=== PATIENT | male | born 1985 | race Caucasian/White ===

== ENCOUNTER 2019-09-16 22:06 | Day surgery (SDC) | payer OTHER ==
--- NOTE | 2019-09-16 22:57 | PDOC ---
Documentation entered by Henry Louis SCRIBE, acting as scribe for Thompson Meraz MD. Thompson Meraz MD: This documentation has been prepared by the Missy jackson Nirvannie, SCRIBE, under my direction and personally reviewed by me in its entirety. I confirm that the documentation accurately reflects all work, treatment, procedures, and medical decision making performed by me. History of Present Illness - General Chief Complaint: Pain, Acute Stated Complaint: EPIGASTRIC PAIN Time Seen by Provider: 09/16/19 22:11 History Source: Patient Exam Limitations: No Limitations - History of Present Illness Initial Comments: 09/16/19 22:55 HPI: The patient is a 33 year old male, with no significant past medical history, who presents to the emergency department with 1.5 days of diffuse lower abdominal pain with associated new onset one day of nausea with emesis. Patient describes his abdominal pain as a 7-8/10 and notes his emesis to occur secondary to pain. He denies any previous abdominal surgeries. He denies any recent fevers, chills , headache or dizziness. He denies any recent diarrhea or constipation. He denies any recent chest pain or shortness of breath. He denies any recent dysuria, frequency, urgency or hematuria. PAST MEDICAL HISTORY: no significant history PAST SURGICAL HISTORY: no significant history FAMILY HISTORY: no pertinent history SOCIAL HISTORY: Pt lives with family and is employed. MEDICATIONS: reviewed ALLERGIES: As per nursing notes ROS: General: No fevers or chills, no weakness, no weight loss HEENT: No change in vision. No sore throat,. No ear pain CardioVascular: No chest pain or shortness of breath Respiratory:No cough, or wheezing. Gastrointestinal: +Lower abdominal pain. +Nausea. +Vomiting. no diarrhea or constipation, No rectal bleeding Genitourinary: No dysuria, hematuria, or frequency Musculoskeletal: No joint or muscle pain or swelling Neurologic: No headache, vertigo, dizziness or loss of consciousness Psychiatric: nor depression Skin: No rashes or easy bruising Endocrine: no increased thirst or abnormal weight change Allergic: no skin or latex allergy All other systems reviewed and normal Physical Exam: General: Well-nourished well-developed individual, no acute distress HEENT: Throat: Normal, tonsils normal, no erythema or exudate Neck: Supple, no meningeal signs, no lymphadenopathy Eyes::Pupils equal reactive and round, extraocular motion intact Chest: Nontender to palpation Cardiac: S1-S2 normal, regular rate and rhythm, no murmurs rubs or gallops Respiratory: Lungs clear to auscultation bilateral Abdomen: +RLQ tenderness with mild guarding. Slightly decreased bowel sounds. Soft, nondistended. Extremities: Warm, dry, no cyanosis, clubbing, or edema Skin: No rashes Neuro: Alert and oriented x3, nonfocal exam, grossly intact, normal gait Psych: Normal mood and affect 09/17/19 00:37 Assessment and plan: This is a 33-year-old male who comes in complaining of 1-1/ 2 days of progressive right lower quadrant abdominal pain. Patient on exam had an exam suspicious for appendicitis. Work-up was initiated including CBC, comp , CAT scan abdomen and pelvis. CAT scan of abdomen and pelvis did show acute appendicitis. Dr. Simon was called and case discussed with Dr. Simon. There are no beds at [facility] as per Dr. Simon's request that patient be transferred to [facility]. So discussed with Dr. Simon and patient will be kept here at [facility]. Hospitalist service was also notified of the admission. Past History - Past Medical History Allergies/Adverse Reactions: Allergies Allergy/AdvReac Type Severity Reaction Status Date / Time No Known Allergies Allergy Unverified 09/16/19 22:07 Home Medications: Ambulatory Orders NK [No Known Home Medication] 09/16/19 COPD: No - Psycho Social/Smoking Cessation Hx Smoking History: Never smoked *Physical Exam - Vital Signs Last Vital Signs Temp Pulse Resp BP Pulse Ox 98 F 55 L 16 113/75 100 09/16/19 22:08 09/16/19 22:08 09/16/19 22:08 09/16/19 22:08 09/16/19 22:08 ED Treatment Course - LABORATORY CBC & Chemistry Diagram: 09/16/19 22:50 09/16/19 22:50 Discharge - Discharge Information Problems reviewed: Yes Clinical Impression/Diagnosis: Acute appendicitis Qualifiers: Acute appendicitis type: unspecified acute appendicitis type Qualified Code(s) : K35.80 - Unspecified acute appendicitis Condition: Stable - Admission Yes - Follow up/Referral - Patient Discharge Instructions - Post Discharge Activity
[2019-09-16] MEDS ORDERED: ONDANSETRON 4 MG/2 ML VIAL IVPB ONE (23:00)
[2019-09-16] MEDS ORDERED: morphine CARPU-JECT 4 MG/1 ML DISP.SYRIN IVPUSH ONE (23:00)
[2019-09-16] MEDS ORDERED: SODIUM CHLORIDE 1,000 ML IV ONE (23:00)
[2019-09-16] MEDS ORDERED: morphine SULFATE 4 MG/ML VIAL ONE (23:07)
[2019-09-16] MEDS ORDERED: ONDANSETRON 4 MG/2 ML VIAL ONE (23:08)
[2019-09-16 23:10] LABS: BASO % 0.4 % (0-2.0); EOS % 0.4 % (0-4.5); HEMATOCRIT 41.8 % (35.4-49); HEMOGLOBIN 14.3 GM/dl (11.7-16.9); LYMPH % 8.9 % (8-40); MCH 32.1 pg (25.7-33.7); MCHC 34.1 g/dl (32.0-35.9); MEAN PLT VOLUME 7.8 fl (7.5-11.1); MONO % 4.7 % (3.8-10.2); NEUT % 85.6 % (42.8-82.8); PLATELET COUNT 260 K/MM3 (134-434); RBC 4.45 M/mm3 (4.00-5.60); WHITE BLOOD COUNT 9.7 K/mm3 (4.0-10.8)
[2019-09-16 23:19] LABS: ALBUMIN 4.5 g/dl (3.4-5.0); BILIRUBIN,TOTAL 0.7 mg/dl (0.2-1); CALCIUM 9.8 mg/dl (8.5-10); CREATININE 0.8 mg/dl (0.55-1.3); POTASSIUM 3.9 mmol/L (3.5-5.1); TOT PROT 7.4 g/dl (6.4-8.2)
[2019-09-17] MEDS ORDERED: PIPERACILLIN/TAZOBACTAM 4.5 GM VIAL IVPB ONE (00:09)
[2019-09-17] MEDS ORDERED: PIPERACILLIN/TAZOB 4.5 GM 4.5 GM in DEXTROSE 5%-WATER 100 ML IVPB ONE (00:13)
[2019-09-17] MEDS ORDERED: morphine CARPU-JECT 4 MG/1 ML DISP.SYRIN IVPUSH ONE (00:39)
[2019-09-17] MEDS ORDERED: morphine SULFATE 4 MG/ML VIAL ONE (00:40)
[2019-09-17] MEDS ORDERED: LACTATED RINGERS SOLUTION 1,000 ML IV SCH ×2 (00:45→13:00)
[2019-09-17 01:29] VITALS: BMI 21.7
[2019-09-17 02:02] LABS: INR 1.02 (0.83-1.09)
[2019-09-17] MEDS ORDERED: morphine SULFATE 4 MG/ML VIAL IVPUSH PRN ×2 (04:00→19:29)
[2019-09-17] MEDS ORDERED: ONDANSETRON 4 MG/2 ML VIAL IVPUSH PRN ×2 (04:00→12:50)
[2019-09-17 07:30] LABS: BASO % 0.1 % (0-2.0); HEMATOCRIT 37.9 % (35.4-49); HEMOGLOBIN 12.6 GM/dl (11.7-16.9); LYMPH % 6.6 % (8-40); MCH 31.9 pg (25.7-33.7); MCHC 33.3 g/dl (32.0-35.9); MEAN CELL VOLUME 95.8 fl (80-96); MEAN PLT VOLUME 7.9 fl (7.5-11.1); MONO % 8.8 % (3.8-10.2); NEUT % 84.5 % (42.8-82.8); PLATELET COUNT 208 K/MM3 (134-434); RBC 3.95 M/mm3 (4.00-5.60); RDW 12.3 % (11.9-15.9); WHITE BLOOD COUNT 8.7 K/mm3 (4.0-10.8)
[2019-09-17 07:38] LABS: CALCIUM 8.5 mg/dl (8.5-10); CREATININE 0.8 mg/dl (0.55-1.3); POTASSIUM 4.2 mmol/L (3.5-5.1)
[2019-09-17] MEDS ORDERED: PIPERACILLIN/TAZOB 3.375 GM 3.375 GM in DEXTROSE 5%-WATER - 50 ML IVPB SCH ×3 (08:00→18:00)
--- NOTE | 2019-09-17 08:15 | CONSULT ---
- Consultation REQUESTING PROVIDER: General Surgery - Reji Aurora CONSULT REQUEST: We have been asked to surgically evaluate this patient for abd pain / acute appy Hospitalist: Francesca Neff NP HPI: Called to [place] 33 yo male without any PMHx os PSHx. Presents to [facility] ED w/ c/ o abd pain (specifically RLQ) that started 2 days ago. States he felt like he had a fever (never actually took temp at home), +n/v (nbnb). Admits to loss of appetite. Over the last few hours pain has migrated towards his RLQ. Denies diarrhea or constipation. Denies CP, palpitations, SOB or ALVAREZ. Denies melena, hematochazia. Denies dysuria, hematuria, flank pain, genital pain. Denies trauma. Patient had CT scan of abd/pelvis while in ED which identified acute appendicitis. PMHx: Denies. PSHx: Denies. Home Medications: None. Allergies: NKDA ROS: CONSTITUTIONAL: Absent: diaphoresis, generalized weakness, malaise, loss of appetite, weight change CARDIOVASCULAR: Absent: syncope, irregular heart rate, lightheadedness, peripheral edema RESPIRATORY: Absent: cough, wheezing, stridor, hemoptysis GASTROINTESTINAL:SEE HPI GENITOURINARY: Absent: SEE HPI MUSCULOSKELETAL: Absent: myalgia, arthralgia, joint swelling, back pain, neck pain SKIN: Absent: rash, itching, pallor HEMATOLOGIC/IMMUNOLOGIC: Absent: easy bleeding, easy bruising, lymphadenopathy NEUROLOGIC: Absent: headache, focal weakness, paresthesias, dizziness, unsteady gait, seizure, mental status changes, PSYCHIATRIC: Absent: anxiety, depression, suicidal or homicidal ideation, hallucinations. PE: GENERAL: Awake, alert, and fully oriented, in no acute distress. HEAD: NC. AT. EYES: PERRL, sclera anicteric, conjunctiva clear. NECK: Normal ROM, supple without lymphadenopathy, JVD, or masses. LUNGS: CTA bilat HEART: RRR ABDOMEN: + McBurney's, voluntary guarding. No rigidity. No organomegaly appreciated MUSCULOSKELETAL: No CVAT bilat UE: 2+ pulses, warm, well-perfused. No cyanosis. Cap refill <2 seconds. No peripheral edema. LE: 2+ pulses, warm, well-perfused. No calf tenderness. No peripheral edema. PSYCH: Cooperative. Good eye contact. Appropriate mood and affect. SKIN: Warm, dry, normal turgor, no rashes or lesions noted. Last Vital Signs Temp Pulse Resp BP Pulse Ox 99.1 F 52 L 17 103/57 L 96 09/17/19 06:00 09/17/19 06:00 09/17/19 07:47 09/17/19 06:00 09/17/19 07:47 CBC, BMP 09/17/19 07:00 09/17/19 07:00 INR, PTT INR 1.02 (0.83-1.09) 09/17/19 00:55 Blood Type Blood Type AB POSITIVE 09/17/19 00:27 Problem List - Problems (1) Acute appendicitis Assessment/Plan: 33 yo male admitted with acute uncomplicated appendicitis on CT scan. - Keep NPO - IVF hydration - Pain mangement - IV ABX - Tylenol for fever > 100.4F - OR for lap appy today Above plan discussed with Dr. Simon and agrees. Code(s): K35.80 - UNSPECIFIED ACUTE APPENDICITIS Qualifiers: Acute appendicitis type: unspecified acute appendicitis type Qualified Code (s): K35.80 - Unspecified acute appendicitis Visit type - Case Type Case Type: ED Admission - Emergency Emergency Visit: Yes ED Registration Date: 09/17/19 Care time: The patient presented to the Emergency Department on the above date and was hospitalized for further evaluation of their emergent condition. - New patient This patient is new to me today: Yes Date on this admission: 09/17/19
[2019-09-17] MEDS ORDERED: DEXTROSE 5%-WATER - 50 ML IVPB ONE ×3 (09:20→23:39)
[2019-09-17] MEDS ORDERED: PIPERACILLIN/TAZOBACTAM 3.375 GM VIAL IVPB ONE ×3 (09:20→23:39)
--- NOTE | 2019-09-17 09:57 | PN ---
Progress Note (short form) - Note Progress Note: ID CONSULT DICTATED
[2019-09-17] MEDS ORDERED: SUCCINYLCHOLINE CHLORIDE 200 MG/10 ML SYRINGE ONE (10:16)
[2019-09-17] MEDS ORDERED: PROPOFOL 20 ML ONE (10:16)
[2019-09-17] MEDS ORDERED: MIDAZOLAM HCL 2 MG/2 ML SINGLE DOSE VIAL ONE (10:17)
[2019-09-17] MEDS ORDERED: ROCURONIUM BROMIDE 50 MG/5 ML VIAL ONE (10:17)
[2019-09-17] MEDS ORDERED: ceFAZolin SODIUM 1 GM VIAL ONE (11:00)
[2019-09-17] MEDS ORDERED: LIDOCAINE HCL/PF 2% SDV 5ML VIAL ONE (11:00)
[2019-09-17] MEDS ORDERED: SODIUM CHLORIDE 0.9% P/F 10 ML VIAL IJ ONE (11:00)
[2019-09-17] MEDS ORDERED: ONDANSETRON 4 MG/2 ML VIAL ONE (11:00)
[2019-09-17] MEDS ORDERED: KETOROLAC TROMETHAMINE 30 MG/1 ML VIAL ONE (11:00)
[2019-09-17] MEDS ORDERED: DEXAMETHASONE SOD PHOSPHATE 4 MG/1 ML VIAL ONE (11:00)
[2019-09-17] MEDS ORDERED: ceFAZolin SODIUM 1 GM VIAL IVPB ONE (11:15)
--- NOTE | 2019-09-17 11:20 | HP ---
CHIEF COMPLAINT: Abdominal pain HISTORY OF PRESENT ILLNESS: The patient is a 33 year-old male with no significant past medical history, who presents to the emergency department with 1.5 days of diffuse lower abdominal pain with associated new onset one day of nausea with emesis. Patient describes his abdominal pain as a 7-8/10 and notes his emesis to occur secondary to pain. He denies any previous abdominal surgeries. He denies any recent fevers, chills , headache or dizziness. He denies any recent diarrhea or constipation. He denies any recent chest pain or shortness of breath. He denies any recent dysuria, frequency, urgency or hematuria. ER course was notable for: (1) CTAP: acute appendicitis (2) (3) Recent Travel: No PAST MEDICAL HISTORY: None reported PAST SURGICAL HISTORY: None reported Social History: Smoking: no Alcohol:no Drugs: no Family history: non-contributory Allergies No Known Allergies Allergy (Unverified 09/16/19 22:07) HOME MEDICATIONS: Home Medications Medication Instructions Recorded NK [No Known Home Medication] 09/16/19 REVIEW OF SYSTEMS: performed post-operatively CONSTITUTIONAL: Absent: fever, chills, diaphoresis, generalized weakness, malaise, loss of appetite, weight change HEENT: Absent: rhinorrhea, nasal congestion, throat pain, throat swelling, difficulty swallowing, mouth swelling, ear pain, eye pain, visual changes CARDIOVASCULAR: Absent: chest pain, syncope, palpitations, irregular heart rate, lightheadedness , peripheral edema RESPIRATORY: Absent: cough, shortness of breath, dyspnea with exertion, orthopnea, wheezing, stridor, hemoptysis GASTROINTESTINAL: +mild surgical abdominal pain Absent: abdominal distension, nausea, vomiting, diarrhea, constipation, melena, hematochezia GENITOURINARY: Absent: dysuria, frequency, urgency, hesitancy, hematuria, flank pain, genital pain MUSCULOSKELETAL: Absent: myalgia, arthralgia, joint swelling, back pain, neck pain SKIN: Absent: rash, itching, pallor HEMATOLOGIC/IMMUNOLOGIC: Absent: easy bleeding, easy bruising, lymphadenopathy, frequent infections ENDOCRINE: Absent: unexplained weight gain, unexplained weight loss, heat intolerance, cold intolerance NEUROLOGIC: Absent: headache, focal weakness or paresthesias, dizziness, unsteady gait, seizure, mental status changes, bladder or bowel incontinence PSYCHIATRIC: Absent: anxiety, depression, suicidal or homicidal ideation, hallucinations. PHYSICAL EXAMINATION Vital Signs - 24 hr 09/16/19 09/17/19 09/17/19 22:08 00:40 00:51 Temperature 98 F 99.4 F Pulse Rate 55 L Pulse Rate [ 50 L 57 L Radial] Respiratory 16 16 Rate Blood Pressure 113/75 Blood Pressure 105/66 [Arm] O2 Sat by Pulse 100 98 Oximetry (%) 09/17/19 09/17/19 09/17/19 01:22 06:00 07:47 Temperature 98.1 F 99.1 F Pulse Rate 48 L 52 L Pulse Rate [ Radial] Respiratory 17 17 17 Rate Blood Pressure 105/57 L 103/57 L Blood Pressure [Arm] O2 Sat by Pulse 98 96 96 Oximetry (%) 09/17/19 09/17/19 08:00 08:45 Temperature 99.9 F H 98.4 F Pulse Rate 56 L 104 H Pulse Rate [ Radial] Respiratory 20 20 Rate Blood Pressure 101/56 L 144/83 Blood Pressure [Arm] O2 Sat by Pulse Oximetry (%) GENERAL: Awake, alert, and fully oriented, in no acute distress. Pale. HEAD: Normal with no signs of trauma. EYES: Pupils equal, round and reactive to light, extraocular movements intact, sclera anicteric, conjunctiva clear. . EARS, NOSE, THROAT: Ears normal, nares patent, oropharynx clear without exudates. Dry mucous membranes. LUNGS: Breath sounds equal, clear to auscultation bilaterally. No wheezes, and no crackles. No accessory muscle use. HEART: Regular rate and rhythm, normal S1 and S2 ABDOMEN: Soft, tender, surgical incision sites dry, edges well-approximated, no erythema MUSCULOSKELETAL: Normal range of motion at all joints. No bony deformities or tenderness. No CVA tenderness. UPPER EXTREMITIES: 2+ pulses, warm, well-perfused. No cyanosis. No clubbing. No peripheral edema. LOWER EXTREMITIES: 2+ pulses, warm, well-perfused. No calf tenderness. No peripheral edema. NEUROLOGICAL: Cranial nerves II-XII intact. Normal speech. Laboratory Results - last 24 hr 09/16/19 09/16/19 09/16/19 22:50 22:50 22:50 WBC 9.7 RBC 4.45 Hgb 14.3 Hct 41.8 MCV 94.0 MCH 32.1 MCHC 34.1 RDW 12.0 Plt Count 260 MPV 7.8 Absolute Neuts (auto) 8.3 Neutrophils % 85.6 H Lymphocytes % 8.9 Monocytes % 4.7 Eosinophils % 0.4 Basophils % 0.4 PT with INR INR Sodium 134 L Potassium 3.9 Chloride 97 L Carbon Dioxide 24 Anion Gap 13 BUN 17.0 Creatinine 0.8 Est GFR (CKD-EPI)AfAm 136.03 Est GFR (CKD-EPI)NonAf 117.37 Random Glucose 113 H Calcium 9.8 Total Bilirubin 0.7 AST 25 ALT 22 Alkaline Phosphatase 60 Total Protein 7.4 Albumin 4.5 Lipase 98 Urine Color Urine Appearance Urine pH Urine Protein Urine Glucose (UA) Urine Ketones Urine Blood Urine Nitrite Urine Bilirubin Urine Urobilinogen Ur Leukocyte Esterase Blood Type Antibody Screen 09/16/19 09/17/19 09/17/19 23:00 00:27 00:55 WBC RBC Hgb Hct MCV MCH MCHC RDW Plt Count MPV Absolute Neuts (auto) Neutrophils % Lymphocytes % Monocytes % Eosinophils % Basophils % PT with INR 12.00 INR 1.02 Sodium Potassium Chloride Carbon Dioxide Anion Gap BUN Creatinine Est GFR (CKD-EPI)AfAm Est GFR (CKD-EPI)NonAf Random Glucose Calcium Total Bilirubin AST ALT Alkaline Phosphatase Total Protein Albumin Lipase Urine Color Yellow Urine Appearance Clear Urine pH 7.0 Urine Protein Negative Urine Glucose (UA) Negative Urine Ketones 4+ H Urine Blood Negative Urine Nitrite Negative Urine Bilirubin Negative Urine Urobilinogen 0.2 Ur Leukocyte Esterase Negative Blood Type AB POSITIVE Antibody Screen Negative 09/17/19 09/17/19 07:00 07:00 WBC 8.7 RBC 3.95 L Hgb 12.6 Hct 37.9 MCV 95.8 MCH 31.9 MCHC 33.3 RDW 12.3 Plt Count 208 MPV 7.9 Absolute Neuts (auto) 7.3 Neutrophils % 84.5 H Lymphocytes % 6.6 L D Monocytes % 8.8 D Eosinophils % 0.0 D Basophils % 0.1 PT with INR INR Sodium 133 L Potassium 4.2 Chloride 101 Carbon Dioxide 26 Anion Gap 6 L BUN 12.0 Creatinine 0.8 Est GFR (CKD-EPI)AfAm 136.03 Est GFR (CKD-EPI)NonAf 117.37 Random Glucose 113 H Calcium 8.5 Total Bilirubin AST ALT Alkaline Phosphatase Total Protein Albumin Lipase Urine Color Urine Appearance Urine pH Urine Protein Urine Glucose (UA) Urine Ketones Urine Blood Urine Nitrite Urine Bilirubin Urine Urobilinogen Ur Leukocyte Esterase Blood Type Antibody Screen ASSESSMENT/PLAN: The patient is a 33 year-old male with no significant past medical history, admitted for acute appendicitis. Acute appendicitis s/p laprascopic appendectomy 09/17/19 --POD #0 --started on Zosyn per ID --pain management per surgery --labs in am FEN Fluids: LR@125mL/hr Electrolytes: replete as indicated Nutrition: regular diet DVT prophylaxis: OOB, ambulation, 24 hour stay Dispo: continues to require inpatient care. Full code. Visit type - Emergency Visit Emergency Visit: Yes Care time: The patient presented to the Emergency Department on the above date and was hospitalized for further evaluation of their emergent condition. - New Patient This patient is new to me today: Yes Date on this admission: 09/17/19 - Critical Care Critical Care patient: No
--- NOTE | 2019-09-17 11:30 | CONS ---
DATE OF CONSULTATION: DATE OF DICTATION: 09/17/2019 INFECTIOUS DISEASE CONSULTATION HISTORY OF PRESENT ILLNESS: The patient is a 33-year-old previously healthy male evaluated for low-grade fever in the setting of acute appendicitis. He presented to the hospital with a 1-1/2-day history of worsening lower abdominal pain associated with nausea and vomiting. He was found to have acute right lower quadrant abdominal pain consistent with acute appendicitis. A CAT scan of the abdomen and pelvis was performed and showed an inflamed retrocecal appendix consistent with acute appendicitis. His course was complicated by low-grade fever. His cultures were obtained. He was empirically treated with Zosyn. He is scheduled for an appendectomy this morning. At the present time he complains of right lower quadrant abdominal pain. Denies any recurrent nausea or vomiting. PAST MEDICAL HISTORY: Negative. ALLERGIES: No known allergies. LABORATORY DATA: White count 8.7, hematocrit 37.9, platelet count 208. Creatinine 0.8. Blood cultures are pending. PHYSICAL EXAMINATION:General: He is in no acute distress. He is lying still in bed. Vital Signs: Temperature 98.4, T-Max 99.9, blood pressure 144/83, pulse 104, regular, respirations 20 per minute. HEENT: Sclerae anicteric. Cardiac: Heart sounds S1, S2. Lungs: Clear. Abdomen: Positive bowel sounds. There is right lower quadrant tenderness to deep palpation with rebound tenderness. Extremities: Negative for edema. Negative Sharon sign. IMPRESSION: 1. Acute appendicitis. 2. Low-grade fever. PLAN: The patient is for appendectomy this morning. Await cultures. Continue empiric Zosyn perioperatively for coverage of intraabdominal pathogens. Thank you for the kind referral. AJITH CACERES M.D. [id number]
[2019-09-17] MEDS ORDERED: NEOSTIGMINE METHYLSULFATE 0.5 MG/ML - 10 ML MDV ONE (11:50)
[2019-09-17] MEDS ORDERED: GLYCOPYRROLATE 0.2 MG/1 ML VIAL ONE (11:51)
[2019-09-17] MEDS ORDERED: BUPIVACAINE HCL/PF 0.5% (5MG/ML) 10 ML VIAL NR ONE (12:00)
[2019-09-17] MEDS ORDERED: BENZOIN/ALOE VERA/STORAX/TOLU 58 ML BOTTLE ONE (12:01)
--- NOTE | 2019-09-17 12:07 | OP ---
Operative Note - Note: Operative Date: 09/17/19 Pre-Operative Diagnosis: Acute appendicitis (uncomplicated) Operation: Laprascopic appendectomy Post-Operative Diagnosis: Same as Pre-op Surgeon: Reji Simon Systems Integration Advisor: Marty Glynn Anesthesiologist/DIRECTOR PROSPECT: Ravindra Leblanc Anesthesia: General Specimens Removed: appendix Estimated Blood Loss (mls): 5 Fluid Volume Replaced (mls): 800 Operative Report Dictated: Yes
--- NOTE | 2019-09-17 12:08 | SURG ---
Surgery Vocational Director Note Vocational Director: Marty Glynn PA-C Date of Service: 09/17/19 Diagnosis: Acute appendicitis (uncomplicated) Procedure: Laprascopic appendectomy I was present for the entirety of the operative procedure. For further detail, please refer to operative report. Visit type - Case Type Case Type: ED Admission - Emergency Emergency Visit: Yes ED Registration Date: 09/17/19 Care time: The patient presented to the Emergency Department on the above date and was hospitalized for further evaluation of their emergent condition.
--- NOTE | 2019-09-17 12:14 | EKG ---
Test Reason : Blood Pressure : / mmHG Vent. Rate : 057 BPM Atrial Rate : 057 BPM P-R Int : 168 ms QRS Dur : 086 ms QT Int : 432 ms P-R-T Axes : 043 047 036 degrees QTc Int : 420 ms SINUS BRADYCARDIA OTHERWISE NORMAL ECG NO PREVIOUS ECGS AVAILABLE Confirmed by AJITH HERR MD ([id number]) on 09/17/2019 12:14:32 PM Referred By: ZULMA PALMER Confirmed By:AJITH HERR MD
[2019-09-17] MEDS ORDERED: ACETAMINOPHEN 1000 MG/100 ML VIAL (NON FORMULARY) IVPB ONE ×2 (12:15→12:52)
[2019-09-17] MEDS ORDERED: ACETAMINOPHEN INJECTION 100 ML IVPB ONE (12:38)
[2019-09-17] MEDS ORDERED: HYDROmorphone HCL CARPU-JECT 1 MG/1 ML DISP.SYRIN IVPUSH PRN (12:50)
[2019-09-17] MEDS ORDERED: PIPERACILLIN/TAZOB 3.375 GM 3.375 GM/50 ML BAG IVPB SCH (16:43)
[2019-09-17] MEDS: PIPERACILLIN/TAZOB 3.375 GM 3.375 GM in DEXTROSE 5%-WATER - 50 ML IVPB SCH (17:11)
[2019-09-17] MEDS ORDERED: ACETAMINOPHEN 325 MG TABLET (FP) PO PRN (19:36)
[2019-09-18] MEDS: PIPERACILLIN/TAZOB 3.375 GM 3.375 GM in DEXTROSE 5%-WATER - 50 ML IVPB SCH ×2 (00:09→08:13)
[2019-09-18] MEDS ORDERED: DEXTROSE 5%-WATER - 50 ML IVPB ONE (07:44)
[2019-09-18] MEDS ORDERED: PIPERACILLIN/TAZOBACTAM 3.375 GM VIAL IVPB ONE (07:44)
[2019-09-18 08:43] LABS: CALCIUM 8.3 mg/dl (8.5-10); CREATININE 0.8 mg/dl (0.55-1.3); MAGNESIUM 1.9 mg/dL (1.8-2.4); POTASSIUM 3.9 mmol/L (3.5-5.1)
[2019-09-18 08:54] LABS: BASO % 0.2 % (0-2.0); EOS % 0.2 % (0-4.5); HEMOGLOBIN 11.7 GM/dl (11.7-16.9); LYMPH % 17.3 % (8-40); MCH 32.4 pg (25.7-33.7); MCHC 34.4 g/dl (32.0-35.9); MEAN CELL VOLUME 94.3 fl (80-96); MEAN PLT VOLUME 8.1 fl (7.5-11.1); MONO % 5.2 % (3.8-10.2); NEUT % 77.1 % (42.8-82.8); PLATELET COUNT 182 K/MM3 (134-434); RBC 3.61 M/mm3 (4.00-5.60); RDW 11.8 % (11.9-15.9); WHITE BLOOD COUNT 7.9 K/mm3 (4.0-10.8)
[2019-09-18 09:48] VITALS: BP 100/61; PULSE 53; TEMP 98.5
--- NOTE | 2019-09-18 09:59 | PN ---
Progress Note (short form) - Note Progress Note: Attending Surgeon POD#1 s/p lap appendectomy No c/o' tolerated clear liquids; voided and passing flatus VSS AF abdo-soft; port site dressings c/d/i; abdo soft; active bowel sounds; o/w negative. IMP: doing well PLAN: Regular diet and d/c home to office f/u next week. Reji Simon MD FACS
--- NOTE | 2019-09-18 10:05 | DS ---
Physical Exam: SUBJECTIVE: Patient seen and examined OBJECTIVE: Vital Signs Period Temp Pulse Resp BP Sys/Youngblood Pulse Ox Last 24 Hr 97.8 F-99.8 F 50-78 14-20 91-108/30-61 98-99 PHYSICAL EXAM GENERAL: Awake, alert, and fully oriented, in no acute distress. HEAD: Normal with no signs of trauma. EYES: Pupils equal, round and reactive to light, extraocular movements intact, sclera anicteric, conjunctiva clear. . EARS, NOSE, THROAT: Ears normal, nares patent, oropharynx clear without exudates. HEART: Regular rate and rhythm, normal S1 and S2 ABDOMEN: Soft, tender, surgical incision sites dry, edges well-approximated, no erythema MUSCULOSKELETAL: Normal range of motion at all joints. No bony deformities or tenderness. No CVA tenderness. UPPER EXTREMITIES: 2+ pulses, warm, well-perfused. No cyanosis. No clubbing. No peripheral edema. LOWER EXTREMITIES: 2+ pulses, warm, well-perfused. No calf tenderness. No peripheral edema. NEUROLOGICAL: Cranial nerves II-XII intact. Normal speech. LABS Laboratory Results - last 24 hr 09/18/19 09/18/19 08:00 08:00 WBC 7.9 RBC 3.61 L Hgb 11.7 Hct 34.0 L MCV 94.3 MCH 32.4 MCHC 34.4 RDW 11.8 L Plt Count 182 MPV 8.1 Absolute Neuts (auto) 6.1 Neutrophils % 77.1 Lymphocytes % 17.3 D Monocytes % 5.2 Eosinophils % 0.2 D Basophils % 0.2 Sodium 135 L Potassium 3.9 Chloride 102 Carbon Dioxide 27 Anion Gap 6 L BUN 12.0 Creatinine 0.8 Est GFR (CKD-EPI)AfAm 136.03 Est GFR (CKD-EPI)NonAf 117.37 Random Glucose 108 H Calcium 8.3 L Magnesium 1.9 HOSPITAL COURSE: Date of Admission:09/17/19 Date of Discharge: 09/18/19 Pre hospital course The patient is a 33 year-old male with no significant past medical history, who presents to the emergency department with 1.5 days of diffuse lower abdominal pain with associated new onset one day of nausea with emesis. Patient describes his abdominal pain as a 7-8/10 and notes his emesis to occur secondary to pain. He denies any previous abdominal surgeries. He denies any recent fevers, chills , headache or dizziness. He denies any recent diarrhea or constipation. He denies any recent chest pain or shortness of breath. He denies any recent dysuria, frequency, urgency or hematuria. ER course (1) CTAP: acute appendicitis Subsequent hospital course Acute appendicitis s/p laprascopic appendectomy 09/17/19 --discharged on POD #1, uncomplicated course --perioperative antibiotics complete --pain well-managed with PO meds, tolerating PO --followup with surgery Minutes to complete discharge: 35 Discharge Summary Problems reviewed: Yes Reason For Visit: ACUTE APPENDICITIS Current Active Problems Acute appendicitis (Acute) Condition: Improved - Instructions Diet, Activity, Other Instructions: Dr. Simon Discharge Instructions Post Operative Instructions Physical activity Resume your normal everyday activity as tolerated no heavy lifting or exercise until seen by your surgeon. You may walk unlimited amounts of and climb stairs. You may resume driving the car when you feel safe and comfortable behind the wheel. Wound care If you have a bandage, leave it on, and keep dry for 48 - 72 hours. After that time discard the outer bandage. If there are tapes on the skin under the outer bandage, leave them in place. They will peel off in the next 7 to 10 days. Do Not peel them off. You may shower 2 days after surgery. If there are tapes present on the skin, they can get wet. Diet There are no dietary restrictions. Eat healthy, high-fiber foods. Drink 6 to 8 glasses of liquid each day. This will assist in keeping your bowels are regular. Pain management You may take Tylenol or acetaminophen or Ibuprofen (for example, Motrin, Advil etc.) Any pain prescription medication ordered should be taken as prescribed for moderate to severe pain. Call Dr. Simon for any of the following: Severe pain not relieved by medication Fever of 101 or higher Excessive bleeding or drainage on dressing Inability to urinate Call the office at [phone] for a post operative appointment in 7 - 10 days. Referrals: Reji Simon MD [Staff Physician] - Disposition: HOME - Home Medications Comprehensive Discharge Medication List: Ambulatory Orders oxyCODONE HCL [Roxicodone -] 5 mg PO Q4H PRN #28 tablet MDD 6 09/17/19 This patient is new to me today: No Emergency Visit: Yes Care time: The patient presented to the Emergency Department on the above date and was hospitalized for further evaluation of their emergent condition. Critical Care patient: No - Discharge Referral Referred to [facility] No
--- NOTE | 2019-09-19 18:31 | OP ---
DATE OF OPERATION: 09/17/2019 PREOPERATIVE DIAGNOSIS: Acute appendicitis. POSTOPERATIVE DIAGNOSIS: Acute appendicitis. PROCEDURE: Laparoscopic appendectomy. SURGEON: Reji Simon MD FLORAL DESIGNER SALESPERSON: Marty Glynn PA-C ANESTHESIA: General anesthesia. OPERATIVE FINDINGS: Acute suppurative appendicitis. The rest of the findings are unremarkable. PROCEDURE: The patient was placed on the operating table in supine position, and after induction of general anesthesia and placement of a Wiggins catheter, the patient's abdomen was prepped with ChloraPrep and draped in sterile fashion. A timeout was taken and pneumoperitoneum established above the umbilicus using a Veress needle to an intraabdominal pressure of 15 mmHg. An additional suprapubic port was placed just to the left of the midline, which was a 12-mm suprapubic port was placed just to the left of the midline, and a left lower quadrant 5-mm port. The patient was placed head down and the bed rotated to the left side and laparoscopy carried out and the appendix identified. The appendix was grasped with an Endo Nenana clamp, and adhesions to the lateral abdominal wall on the right were broken up using blunt dissection. The mesoappendix was serially divided using the LigaSure device. The appendix was identified in a retrograde fashion to the base of the cecum and the confluence of the 3 taenia at the base of the appendix. Once completely free of the mesentery and adhesions, a purple load Endo SUNDEEP 60 stapling device was fired across the base of the appendix. The appendix was then placed in an EndoCatch and brought out through the suprapubic port site and pneumoperitoneum reestablished. Irrigation was carried out and hemostasis was noted to be intact with respect to the base of the appendix and the adhesions in the mesentery which were divided. Next, all ports were removed under laparoscopic vision without evidence of bleeding from the port sites, and the pneumoperitoneum released. All port sites were infiltrated with 0.5% Marcaine, and the defect at the suprapubic 12-mm port site fascial defect was closed with a single [id number] 0 Vicryl suture. All port sites were infiltrated with 0.5% Marcaine and the skin edges closed with 4-0 Monocryl in subcuticular continuous fashion. Steri-Strips and Band-Aid dressings were placed. The Wiggins catheter was removed , and the patient aroused from general anesthesia and transferred to the post- anesthesia care unit in stable condition, awake and alert. Estimated blood loss 5 mL. Replacement: Crystalloid. Drains: None. Specimen:Appendix to Pathology. I Reji Simon, was physically present in the operating room from the time the patient was placed on the operating table until he was transferred to the post-anesthesia care unit in [facility]. MD MIRELA Colin/[id number] MTDD
--- NOTE | 2019-09-21 14:40 | PATH ---
Surgical Pathology Report Patient Name: SAUNDRA BAILEY Med. Rec. #: [id number] /Age/Gender: 1985 (Age: 33) / M Account: [id number] Location: [facility] Taken: 09/17/2019 Received: 09/17/2019 Reported: 09/21/2019 Physicians: Reji Simon MD Specimen(s) Received APPENDIX Clinical History Acute appendicitis Final Diagnosis APPENDIX, APPENDECTOMY: ACUTE APPENDICITIS AND PERIAPPENDICITIS. Electronically Signed Roland Cyr M.D. Gross Description Received in formalin, labeled "appendix," is a 7 cm. in length vermiform appendix with a stapled margin of resection and moderate attached fat. The serosa is dover-to with adhesions and exudate. Sectioning reveals a dilated lumen containing blood and pus. The wall of the appendix averages 0.2 cm. in thickness. Weigher And Charger sections are submitted in one cassette. /09/20/2019 saudi09/20/2019
== END 2019-09-18 12:03 | disposition home or self-care (01) ==
LOC: FER 22:06 → UNDOADMIN 09-17 00:39 → FM/S 09-17 00:39 → UNDOADMIN 09-17 00:52 → FM/S 09-17 00:52 → SUATTDRO 09-17 14:17 → FASUSAT 09-17 14:17 → FM/S 09-17 14:17 → FASUSAT 09-18 12:03
PROVIDERS: ATTEND Nurse Practitioner Acute Care
PROC: 0DTJ4ZZ Resection of Appendix, Percutaneous Endoscopic Approach (ICD-10-PCS; principal; 2019-09-17 10:30)
DX: K35.80 Unspecified acute appendicitis (principal)
CPT/HCPCS: 36415; 71046-TC-FY; 74177-TC; 80048; 80053; 81003; 83690; 83735; 85025; 85610; 86850; 86900; 86901; 87040; 87086; 88304-TC; 93005; 94760; 99285-25; J0131; J7030; Q9967